=== PATIENT | female | born 1955 | race Asian ===

== ENCOUNTER 2017-08-31 14:48 | Emergency (ER) | payer MEDICARE, OTHER ==
[~2017-08-31] VITALS: Ht 152.4 cm; Wt 51.3 kg
[2017-08-31 16:24] LABS: HEMATOCRIT 41.5 % (37.0-47.0); HEMOGLOBIN 13.7 g/dl (12.0-16.0); IMMATURE GRANULOCYTES 0.3 % (0.0-1.0); MEAN CELL VOLUME 94.3 fL CALC (80.0-100.0); MEAN CORPUSCULAR HGB 31.1 pG CALC (26.0-32.0); NEUT# 3.32 thou/uL (2.00-7.15); RED BLOOD COUNT 4.4 mill/uL (4.20-5.60); RED CELL DISTRI WIDTH 13.1 % (11.5-15.5)
[2017-08-31 16:46] LABS: ALBUMIN 4.5 g/dL (3.2-5.0); ALKALINE PHOSPHATASE 89 u/l (38-126); ANION GAP 17 (6-22 (CALC)); BILIRUBIN, TOTAL 0.5 mg/dL (0.0-1.4); BUN 17 mg/dL (8-23); BUN/CREATININE RATIO 27 (12-20 (CALC)); CARBON DIOXIDE 26 mmol/l (22-30); CHLORIDE 104 mmol/l (95-108); CREATININE 0.7 mg/dL (0.5-1.0); GFR > 60 ML/MIN (>=60 (CALC)); GFR FOR AFR.AMER. > 60 ML/MIN (>=60 (CALC)); POTASSIUM 3.9 mmol/l (3.5-5.1); SGOT/AST 46 u/l (9-36); SGPT/ALT 73 u/l (11-66); SODIUM 143 mmol/l (137-146); TOTAL PROTEIN 8.2 g/dL (6.3-8.2)
[2017-08-31] MEDS ORDERED: FLEXERIL PO (17:07)
[2017-08-31] MEDS ORDERED: EC-NAPROSYN500 MG PO (17:07)
[2017-08-31] MEDS ORDERED: TRAMADOL HYDROC50 MG PO (17:07)
[2017-08-31 17:15] VITALS: BP 139/77
== END 2017-08-31 17:23 | disposition home or self-care (01) ==
LOC: ED 14:48
PROVIDERS: Emergency Medicine
DX: G44.209 Tension-type headache, unspecified, not intractable (principal); R11.0 Nausea; Z85.3 Personal history of malignant neoplasm of breast